=== PATIENT | female | born 2000 | race Caucasian/White ===

== ENCOUNTER 2022-04-23 10:20 | Observation (INO) ==
[2022-04-23] MEDS: cefTRIAXone 1,000 MG in 0.9 % Sodium Chloride 10 ML IVP SCH ×2 (16:11→21:39)
[2022-04-23] MEDS: Ondansetron 4 MG/2 ML VIAL IVP PRN (16:12)
[2022-04-23] MEDS: *HR* HYDROmorphone (PF) 1 MG/ML SYRINGE IVP PRN ×2 (16:12→21:39)
[2022-04-23] MEDS: 0.9 % Sodium Chloride 1,000 ML IVC SCH ×2 (16:13→21:39)
[2022-04-24] MEDS: 0.9 % Sodium Chloride 1,000 ML IVC SCH ×2 (00:07→05:53)
[2022-04-24] MEDS: *HR* Enoxaparin 40 MG/0.4 ML SYRINGE SQ SCH (05:54)
[2022-04-24] MEDS: Ondansetron 4 MG/2 ML VIAL IVP PRN (05:57)
[2022-04-24 08:01] LABS: Basophils % 0.3 %; Eosinophils % 1.5 %; Immature Granulocytes % 0.3 % (0-4); Immature Platelets 3.9 % (1.1-6.1); Mean Corpuscular Hemoglobin 30.5 pg (28.0-33.3)
[2022-04-24 08:13] LABS: Eosinophils # 0.1 K/mcL (0.0-0.6); Hematocrit 44.1 % (35.3-44.9); Hemoglobin 13.8 g/dL (11.5-15.4); Lymphocytes # 1.9 K/mcL (0.6-4.6); Lymphocytes % 20.3 %; Mean Corpuscular HGB Conc 31.3 g/dL (31.6-35.5); Mean Corpuscular Volume 97.6 fL (83.0-100.0); Mean Platelet Volume 12.1 fL (9.4-12.4); Monocytes # 0.5 K/mcL (0.0-1.3); Monocytes % 5.1 %; Neutrophils # 6.8 K/mcL (1.6-8.9); Platelet Count 197 K/mcL (140-400); Red Blood Count 4.52 M/mcL (3.82-4.97); Red Cell Distribution Width 14.3 % (11.5-14.5); Segmented Neutrophils % 72.5 %; White Blood Count 9.4 K/mcL (4.3-11.1)
[2022-04-24] MEDS: cefTRIAXone 1,000 MG in 0.9 % Sodium Chloride 10 ML IVP SCH (09:24)
[2022-04-24 10:51] LABS: Alanine Aminotransferase 14 Units/L (7-52); Albumin 4.8 g/dL (3.5-5.7); Albumin/Globulin Ratio 1.5 (1.1-2.2); Alkaline Phosphatase 118 Units/L (34-104); Aspartate Amino Transferase 17 Units/L (13-39); BUN/Creatinine Ratio 14 (6-26); Bilirubin,Total 0.6 mg/dL (0.3-1.0); Blood Urea Nitrogen 8 mg/dL (6-20); Calcium 9.8 mg/dL (8.6-10.3); Carbon Dioxide 24 mEq/L (23-29); Chloride 113 mEq/L (98-107); Globulin 3.2 g/dL (2.4-3.5); Glucose 98 mg/dL (70-105); Magnesium 2.5 mg/dL (1.6-2.6); Osmolality,Calculated 304 (280-300); Phosphorous 3.2 mg/dL (2.7-4.5); Potassium 3.5 mEq/L (3.5-5.1); Sodium 148 mEq/L (136-145); eGFR For African Americans > 60 (> 60); eGFR For Non-African Americans > 60 (> 60)
[2022-04-24] MEDS ORDERED: 0.9 % Sodium Chloride 1,000 ML IVC SCH (12:00)
[2022-04-24] MEDS ORDERED: Pantoprazole 40 MG VIAL IVP SCH (12:00)
[2022-04-25 05:16] LABS: Alanine Aminotransferase 11 Units/L (7-52); Albumin 3.7 g/dL (3.5-5.7); Albumin/Globulin Ratio 1.4 (1.1-2.2); Alkaline Phosphatase 86 Units/L (34-104); Aspartate Amino Transferase 16 Units/L (13-39); BUN/Creatinine Ratio 8 (6-26); Bilirubin,Total 0.6 mg/dL (0.3-1.0); Blood Urea Nitrogen 3 mg/dL (6-20); Calcium 8.8 mg/dL (8.6-10.3); Carbon Dioxide 21 mEq/L (23-29); Chloride 111 mEq/L (98-107); Globulin 2.6 g/dL (2.4-3.5); Glucose 86 mg/dL (70-105); Osmolality,Calculated 286 (280-300); Phosphorous 2.4 mg/dL (2.7-4.5); Potassium 3.7 mEq/L (3.5-5.1); Sodium 140 mEq/L (136-145); Total Protein 6.3 g/dL (6.4-8.9); eGFR For African Americans > 60 (> 60); eGFR For Non-African Americans > 60 (> 60)
[2022-04-25] MEDS: *HR* Enoxaparin 40 MG/0.4 ML SYRINGE SQ SCH (05:20)
[2022-04-25] MEDS: cefTRIAXone 1,000 MG in 0.9 % Sodium Chloride 10 ML IVP SCH (08:28)
[2022-04-25] MEDS ORDERED: Venlafaxine XR (24 HR) 150 MG CAP.ER.24H PO SCH (09:00)
[2022-04-25] MEDS ORDERED: ARIPiprazole 2 MG TABLET PO SCH (09:00)
[2022-04-25] MEDS ORDERED: lamoTRIgine 100 MG TABLET PO SCH (09:00)
[2022-04-25] MEDS ORDERED: Lithium Carbonate 300 MG CAPSULE PO SCH (09:00)
[2022-04-25] MEDS: *HR* HYDROmorphone (PF) 1 MG/ML SYRINGE IVP PRN (09:17)
[2022-04-25 10:07] VITALS: O2SAT 98
[2022-04-25 15:16] VITALS: BP 118/80; PULSE 88; TEMP 98
== END 2022-04-25 17:45 | disposition home or self-care (01) ==
LOC: 3ANU → SUATTDRO 13:54
PROVIDERS: ADMIT Student in an Organized Health Care Education/Training Program; ATTEND Internal Medicine